=== PATIENT | male | born 1935 | race Caucasian/White ===

== ENCOUNTER → 2019-11-11 | Outpatient (CLI) | payer MEDICARE, OTHER ==
[~2019-11-11] MED LIST: AMLO5TAB9 PO; CYAN500T63 PO; FOLI0.4T2 PO
== END | disposition home or self-care (01) ==
LOC: RAH 11:23
PROVIDERS: ATTEND Urology
DX: N28.1 Cyst of kidney, acquired (principal); C61 Malignant neoplasm of prostate; N18.9 Chronic kidney disease, unspecified
CPT/HCPCS: 76770

== ENCOUNTER 2019-11-26 17:46 | Emergency (ER) | payer MEDICARE ==
[2019-11-26] MEDS ORDERED: TETANUS/DIPHTHERIA TOXOID [ADULT] 0.5 ML VIAL IM ONE (18:32)
== END 2019-11-26 20:16 | disposition home or self-care (01) ==
LOC: EDH 17:46
DX: S00.83XA Contusion of other part of head, initial encounter (principal); S40.812A Abrasion of left upper arm, initial encounter; S40.811A Abrasion of right upper arm, initial encounter; I10 Essential (primary) hypertension; W18.39XA Other fall on same level, initial encounter; Y93.89 Activity, other specified; Y92.89 Other specified places as the place of occurrence of the external cause; Y99.8 Other external cause status
CPT/HCPCS: 70450; 72125; 90471; 90714